=== PATIENT | male | born 1965 | race Caucasian/White ===

== ENCOUNTER 2016-11-25 23:15 | Emergency (ER) | payer OTHER ==
[~2016-11-25] VITALS: Ht 193 cm; Wt 123.9 kg
[~2016-11-25 23:15] MED LIST: ALBU18002 INH; ASPI81TA28 PO; CYCL-259 PO; GLC/500 PO; LISI-789 PO; METO100T7 PO; NTRGSL/4 UT; RIZA10TA18 PO
[2016-11-25 23:21] VITALS: Ht 193 cm; Wt 123.9 kg
--- NOTE | 2016-11-25 23:37 | EMERGENCY ROOM VISIT NOTE ---
History Report prepared by Kelly: Shirley Jimenez Under the Supervision of: Dr. Parker Francis M.D. First contact with patient: 23:27 Chief Complaint: RECTAL BLEEDING Stated Complaint: EXTREME SICKNESS, RECTAL BLEEDING History of Present Illness The patient is a 51 year old white male with a past medical history of diverticulitis and an appendectomy who presents to the ED with a cc of a rectal bleed beginning 5 hours prior to arrival. Positive abdominal pain, chills. Negative testicular pain, fevers. The patient reports that he takes baby aspirin every day. Source of History: patient Onset: 5 hours prior to arrival Position: other (rectum) Quality: other (bleed) Associated Symptoms: + chills, + abdominal pain, No fevers Review of Systems See HPI for pertinent positives and negatives. A total of ten systems were reviewed and were otherwise negative. Past Medical & Surgical Medical Problems: (1) Acute Systolic Heart Failure (2) Asthma, Unspecified (3) Diab Kacey Wo Compl, Type Ii Or Unspec Type, Not Uncntrld (4) Esophageal Reflux (5) Heart disease (6) SVT (supraventricular tachycardia) Family History Cancer Diabetes mellitus Heart disease Hypertension Kidney disease Kidney stones Social History Smoking Status: Never Smoker Alcohol Use: none Marital Status: Housing Status: lives with family Occupation Status: unemployed Current/Historical Medications Scheduled Amoxicillin & Pot Clavulanate (Augmentin 875-125 mg), 1 TAB PO BID Aspirin (Aspirin Ec), 81 MG PO QAM Dicyclomine Hcl (Bentyl), 20 MG PO BID Duloxetine HCl (Cymbalta), 20 MG PO BID Lisinopril (Zestril), 2.5 MG PO QAM Metformin Hcl (Glucophage), 500 MG PO HS Metoprolol Succinate (Toprol Xl), 100 MG PO BID Pregabalin (Lyrica), 75 MG PO BID Rizatriptan Benzoate (Maxalt), 10 MG PO UD Scheduled PRN Albuterol Sulfate (Proair Respiclick), 2-4 PUFFS INH Q6H PRN for SOB/Wheezing Cyclobenzaprine Hcl (Flexeril), 10 MG PO TID PRN for MUSCLE SPASM Nitroglycerin (Nitrostat), 0.4 MG UT PRN PRN for Chest Pain Oxycodone/Acetaminophen 5MG/325MG (Percocet 5MG/325MG), 1 TABLET PO Q6H PRN for Pain Allergies Coded Allergies: Hydromorphone (Verified Allergy, Mild, rash, 01/22/16) Gabapentin (Verified Adverse Reaction, Intermediate, BLOATING, 01/22/16) Physical Exam Vital Signs Date Time Temp Pulse Resp B/P (MAP) Pulse Ox O2 Delivery O2 Flow Rate FiO2 11/26/16 02:42 36.6 89 18 132/83 99 11/26/16 01:24 92 18 132/84 98 Room Air 11/26/16 00:05 79 11/25/16 23:21 36.6 90 20 115/76 98 Room Air Physical Exam GENERAL: Awake, alert, uncomfortable, NAD HENT: Normocephalic, atraumatic. EYES: Normal conjunctiva. Sclera non-icteric. CHEST: No CVA tenderness to palpation. NECK: Supple. No nuchal rigidity. FROM. RESPIRATORY: CTAB, no rhonchi, wheezing, crackles CARDIAC: RRR, no MRG ABDOMEN: Mild diffuse tenderness more pronounced in suprapubic right lower quadrant area. Not peritonitic. : No testicular pain. MSK: No chest wall TTP, no LE edema RECTAL: No hemo, no masses, no fissures, Hemoccult was trace positive NEURO: GCS 15, CN 2-12 intact, moves all 4s on command SKIN: No rash or jaundice noted. Medical Decision & Procedures ER Provider Diagnostic Interpretation: Chest X-Ray: Trachea is midline. Costophrenic angles well demarcated. No effusion noted. No air above diaphragm. Appears to have an AICD in place in left chest. Bony structures appear intact. Radiology results as stated below per my review and [facility]. CT ABDOMEN & PELVIS With Contrast: Intact distal colonic anastomosis. Minimal wall thickening in the descending segment should be correlated for symptoms of colitis. There are diverticula, but these do not appear to be focal point of inflammation. Appendix is not identified. Hepatic steatosis. Laboratory Results 11/25/16 23:50 Red Blood Count 4.78, Mean Corpuscular Volume 85.4, Mean Corpuscular Hemoglobin 31.4, Mean Corpuscular Hemoglobin Concent 36.8, Mean Platelet Volume 9.8, Neutrophils (%) (Auto) 77.3, Lymphocytes (%) (Auto) 13.4, Monocytes (%) (Auto) 5.3, Eosinophils (%) (Auto) 3.5, Basophils (%) (Auto) 0.3, Neutrophils # (Auto) 9.94, Lymphocytes # (Auto) 1.72, Monocytes # (Auto) 0.68, Eosinophils # (Auto) 0.45, Basophils # (Auto) 0.04 11/25/16 23:50 Test 11/25/16 23:50 11/26/16 00:01 White Blood Count 12.85 K/uL (4.8-10.8) Red Blood Count 4.78 M/uL (4.7-6.1) Hemoglobin 15.0 g/dL (14.0-18.0) Hematocrit 40.8 % (42-52) Mean Corpuscular Volume 85.4 fL (80-100) Mean Corpuscular Hemoglobin 31.4 pg (25-34) Mean Corpuscular Hemoglobin Concent 36.8 g/dl (32-36) Platelet Count 262 K/uL (130-400) Mean Platelet Volume 9.8 fL (7.4-10.4) Neutrophils (%) (Auto) 77.3 % Lymphocytes (%) (Auto) 13.4 % Monocytes (%) (Auto) 5.3 % Eosinophils (%) (Auto) 3.5 % Basophils (%) (Auto) 0.3 % Neutrophils # (Auto) 9.94 K/uL (1.4-6.5) Lymphocytes # (Auto) 1.72 K/uL (1.2-3.4) Monocytes # (Auto) 0.68 K/uL (0.11-0.59) Eosinophils # (Auto) 0.45 K/uL (0-0.5) Basophils # (Auto) 0.04 K/uL (0-0.2) RDW Standard Deviation 41.0 fL (36.4-46.3) RDW Coefficient of Variation 13.2 % (11.5-14.5) Immature Granulocyte % (Auto) 0.2 % Immature Granulocyte # (Auto) 0.02 K/uL (0.00-0.02) Prothrombin Time 10.5 SECONDS (9.0-12.0) Prothromb Time International Ratio 1.0 (0.9-1.1) Activated Partial Thromboplast Time 27.8 SECONDS (21.0-31.0) Partial Thromboplastin Ratio 1.1 Anion Gap 9.0 mmol/L (3-11) Est Creatinine Clear Calc Drug Dose 124.5 ml/min Estimated GFR () 98.9 Estimated GFR (Non- 85.3 BUN/Creatinine Ratio 15.1 (10-20) Calcium Level 9.3 mg/dl (8.5-10.1) Total Bilirubin 0.7 mg/dl (0.2-1) Direct Bilirubin 0.1 mg/dl (0-0.2) Aspartate Amino Transf (AST/SGOT) 30 U/L (15-37) Alanine Aminotransferase (ALT/SGPT) 73 U/L (12-78) Alkaline Phosphatase 90 U/L (45-117) Total Protein 8.2 gm/dl (6.4-8.2) Albumin 4.1 gm/dl (3.4-5.0) Lipase 183 U/L (73-393) Urine Color YELLOW Urine Appearance CLEAR (CLEAR) Urine pH 5.0 (4.5-7.5) Urine Specific [place] 1.017 (1.000-1.030) Urine Protein NEG (NEG) Urine Glucose (UA) NEG (NEG) Urine Ketones NEG (NEG) Urine Occult Blood NEG (NEG) Urine Nitrite NEG (NEG) Urine Bilirubin NEG (NEG) Urine Urobilinogen NEG (NEG) Urine Leukocyte Esterase TRACE (NEG) Urine WBC (Auto) 1-5 /hpf (0-5) Urine RBC (Auto) 0-4 /hpf (0-4) Urine Hyaline Casts (Auto) 0 /lpf (0-5) Urine Epithelial Cells (Auto) 0-5 /lpf (0-5) Urine Bacteria (Auto) NEG (NEG) Laboratory results reviewed by me Medications Administered Medications (Trade) Dose Ordered Sig/Babs Route Start Time Stop Time Status Last Admin Dose Admin Sodium Chloride 1,000 ml @ 999 mls/hr Q1H1M STAT IV 11/25/16 23:39 11/26/16 00:39 DC 11/25/16 23:56 999 MLS/HR Ondansetron HCl (Zofran Inj) 4 mg NOW STAT IV 11/25/16 23:39 11/25/16 23:41 DC 11/25/16 23:56 4 MG Cyclobenzaprine HCl (Flexeril Tab) 10 mg ONE STAT PO 11/26/16 01:45 11/26/16 01:48 DC 11/26/16 02:22 10 MG Amoxicillin/ Clavulanate Potassium (Augmentin Tab) 875 mg NOW ONCE PO 11/26/16 02:30 11/26/16 02:31 DC 11/26/16 02:36 875 MG ECG Indication: other (rectal bleeding ) Rate (beats per minute): 78 Rhythm: normal sinus Findings: no ectopy, other (normal axis, normal intervals, no STS changes or T- wave inversions) ED Course 2330: The patient was evaluated in room B12B. A complete history and physical exam was performed. 0200: I updated the patient on his results. 0: I reevaluated the patient. Discussed results and discharge instructions: He verbalized understanding and agreement. The patient is ready for discharge. 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 Differential diagnosis: Etiologies such as appendicitis, diverticulitis, PUD, biliary pathology, UTI, pancreatitis, obstruction, mesenteric ischemia, aortic pathology, infections, inflammatory bowel disease, renal colic, as well as others were entertained. Patient was seen and evaluated the bedside. Patient states that he has some abdominal pain that began suddenly around 6 PM is fairly well localized to lower abdomen. Patient stated as sharp dull and achy. Patient states that most throughout the abdomen. Patient denies any recent travel, fevers, trauma. Patient does take a baby aspirin. Patient did have blood work that was completed as well as an EKG, chest x-ray and CT of the abdomen pelvis. Patient did have a rectal exam was completed that showed trace blood. WBC 12K, hgb WNL, platelet count WNL. Coags WNL. Given patient w/ stable vitals and normal blood counts w/ colitis, given PO Augmentin given medication interactions w/ cipro/ flagyl. patient received first dose here then was given f/u w/ GI as outpatient as he was deemed suitable at this time. Given f/u, d/c, and return precautions and d/c'ed to home. Medication Reconcilliation Current Medication List: was personally reviewed by me Blood Pressure Screening Patient's blood pressure: Normal blood pressure Impression Primary Impression: Abdominal pain Additional Impressions: Rectal bleed Colitis Scribe Attestation The scribe's documentation has been prepared under my direction and personally reviewed by me in its entirety. I confirm that the note above accurately reflects all work, treatment, procedures, and medical decision making performed by me. Departure Information Dispostion Home / Self-Care Prescriptions Dicyclomine Hcl (BENTYL) 20 Mg Tab 20 MG PO BID for 7 Days, #14 TAB Prov: Parker Francis M.D. 11/26/16 Amoxicillin & Pot Clavulanate (Augmentin 875-125 mg) 1 Tab Tab 1 TAB PO BID for 7 Days, #14 TAB Prov: Parker Francis M.D. 11/26/16 Referrals French Weir D.O. (PCP) Luis Clay D.O. Forms HOME CARE DOCUMENTATION FORM, IMPORTANT VISIT INFORMATION, WORK / SCHOOL INSTRUCTIONS Patient Instructions Abdominal Pain, My [facility] Additional Instructions Please return to the emergency department if you have worsening or recurrent symptoms not amenable to at-home treatment. Please call for a follow-up appointment with her primary care physician. Please take your medications as prescribed. If you have other concerns and/or complaints please feel free to also call your primary care physician's office or return the ED for further evaluation, management, and treatment. You may take 650 mg tylenol as needed for pain every 6 hours. You may also try bentyl. Please take your antibiotics as prescribed with food. Consider yogurt or probiotics to help promote good gut quintin. Consider calling the referred physician who is a seed buyer. You may need to discuss with your PCP before getting a referral. You have been examined and treated today on an emergency basis only. This is not a substitute for, or an effort to provide, complete comprehensive medical care. It is impossible to recognize and treat all injuries or illnesses in a single emergency department visit. It is therefore important that you follow up closely with [facility]. Call as soon as possible for an appointment. Thank you for your time and consideration. I look forward to speaking with you again soon. Please don't hesitate to call us if you have any questions. Problem Qualifiers Primary Impression: Abdominal pain Abdominal location: lower abdomen, unspecified Qualified Codes: R10.30 - Lower abdominal pain, unspecified
[2016-11-25] MEDS ORDERED: SODIUM CHLORIDE 0.9% 1000ML 1,000 ML IV STA (23:39)
[2016-11-25] MEDS ORDERED: ONDANSETRON INJ 2 MG/ML 2 ML VIAL IV STA (23:39)
[2016-11-25] MEDS ORDERED: OPTIRAY 320 IV PRN (23:45)
[2016-11-26 00:11] LABS: BASO % 0.3 %; BASO ABS # 0.04 K/uL (0-0.2); COMPLETE YES; EOS % 3.5 %; HEMATOCRIT 40.8 % (42-52); IG% 0.2 %; LYMPH % 13.4 %; LYMPH ABS # 1.72 K/uL (1.2-3.4); MEAN CELL VOLUME 85.4 fL (80-100); MEAN CORPUSCULAR HEMOGLOBIN 31.4 pg (25-34); MEAN CORPUSCULAR HGB CONC 36.8 g/dl (32-36); MEAN PLATELET VOLUME 9.8 fL (7.4-10.4); MONO % 5.3 %; NEUT % 77.3 %; PLATELET COUNT 262 K/uL (130-400); RED BLOOD COUNT 4.78 M/uL (4.7-6.1); WHITE BLOOD COUNT 12.85 K/uL (4.8-10.8)
[2016-11-26 00:12] LABS: URINE APPEARANCE CLEAR (CLEAR); URINE BILIRUBIN NEG (NEG); URINE COLOR YELLOW; URINE EPITHELIAL CELL AUTO 0-5 /lpf (0-5); URINE NITRITE NEG (NEG); URINE SPECIFIC GRAVITY 1.017 (1.000-1.030); UROBILINOGEN NEG (NEG); ZZUR CULT IF INDIC CLEAN CATCH NO
[2016-11-26 00:14] LABS: MANUAL MICROSCOPIC REQUIRED? NO; REVIEW REQ? NO
[2016-11-26 00:16] LABS: PARTIAL THROMBOPLASTIN RATIO 1.1; PROTHROMBIN TIME (PATIENT) 10.5 SECONDS (9.0-12.0)
[2016-11-26] MEDS ORDERED: OXYC-57 PO (00:27)
[2016-11-26] MEDS ORDERED: PREG1CAP28 PO (00:28)
[2016-11-26] MEDS ORDERED: DULO-24 PO (00:30)
[2016-11-26 00:32] LABS: BUN/CREATININE RATIO 15.1 (10-20); CALCIUM 9.3 mg/dl (8.5-10.1); CREATININE 1.02 mg/dl (0.60-1.40); POTASSIUM 3.7 mmol/L (3.5-5.1)
[2016-11-26] MEDS ORDERED: CYCLOBENZAPRINE HCL 5 MG TAB PO STA (01:45)
[2016-11-26] MEDS ORDERED: DICY20TA35 PO (02:25)
[2016-11-26] MEDS ORDERED: AMOX875T PO (02:25)
[2016-11-26] MEDS ORDERED: AMOXICILLIN/CLAVULANATE TAB 875 MG TAB PO ONE (02:30)
[2016-11-26 02:42] VITALS: BP 132/83; PULSE 89; TEMP 36.6; O2SAT 99
--- NOTE | 2016-11-26 07:13 | DIAGNOSTIC IMAGING REPORT ---
ABD/PELVIS IV CONTRAST ONLY HISTORY: 51 years-old Male pain in suprapubic/RLQ, severe, stabbing, GI bleed acute suprapubic and right lower quadrant abdominal pain with gastrointestinal hemorrhage COMPARISON: Chest CT 03/01/2014 TECHNIQUE: Multiple axial CT images of the abdomen and pelvis were obtained following the intravenous administration of 93 mL Optiray 320. A dose lowering technique was used consistent with the principals of ALARA. Images obtained were in the delayed excretory phase secondary to patient vomiting soon after injection. FINDINGS: The lung bases are generally clear. No pneumoperitoneum identified. Imaged inferior cardiac chambers are normal in size without large pericardial effusion. Pacer leads are seen overlying the right heart. Diffuse fatty infiltration of the liver. The spleen, pancreas and adrenal glands are within normal limits. Gallbladder is also unremarkable. Lobulation of the bilateral renal parenchyma suggests lobulations. Indeterminate low attenuating lesions measuring up to 7 mm within the posterior aspect inferior pole left kidney are indeterminate, however suggest cysts. No renal collecting system dilation or focal filling defects identified. No hydronephrosis or definite renal calculi. Urinary bladder is partially collapsed. Prostate is upper limits of normal in size. The abdominal aorta is normal in course and caliber. No bulky adenopathy. There is no bowel obstruction. Nondistention of the rectosigmoid. Anastomotic sutures are present at the distal aspect of the descending colon which appear intact. There is nondistention with mild wall thickening extending from the splenic flexure through the descending and sigmoid colon. Scattered noninflamed colonic diverticula. Prior appendectomy. Soft tissues are unremarkable. Facet arthrosis of the lower lumbar spine. Bones appear intact. IMPRESSION: 1. Mild wall thickening of the colon extending from the splenic flexure through the sigmoid colon may be secondary to nondistention, however mild colitis could have a similar appearance. Correlate with clinical exam and patient presentation. 2. Prior partial resection of the distal descending colon with anastomosis intact. Prior appendectomy. 3. Fatty infiltration of the liver. 4. Colonic diverticulosis without diverticulitis. The above report was generated using voice recognition software. It may contain grammatical, syntax or spelling errors. Electronically signed by: Nic Angel M.D. 11/26/2016 7:11 AM Dictated Date/Time: 11/26/2016 7:05 AM
--- NOTE | 2016-11-26 07:16 | DIAGNOSTIC IMAGING REPORT ---
SINGLE VIEW CHEST CLINICAL HISTORY: Generalized abdominal pain. FINDINGS: An AP, portable, upright chest radiograph is compared to study dated 10/14/2013 and correlated with chest CT dated 03/01/2014. The examination is degraded by portable technique and patient rotation. A cardiac AICD is unchanged in position. The heart is top normal for projection. The pulmonary vasculature is noncongested. Chronic interstitial thickening is similar to previous.. . No airspace consolidation, large pleural effusion, or pneumothorax is seen. The bony thorax is grossly intact. IMPRESSION: 1. AICD. There is no radiographic evidence of congestive failure. 2. No airspace consolidation or pleural effusion is identified. Electronically signed by: Rogerio Sheridan M.D. 11/26/2016 7:15 AM Dictated Date/Time: 11/26/2016 7:13 AM
== END 2016-11-26 02:43 | disposition home or self-care (01) ==
LOC: C.EDB 23:18
DX: R10.30 Lower abdominal pain, unspecified (principal); K62.5 Hemorrhage of anus and rectum; K52.9 Noninfective gastroenteritis and colitis, unspecified; J45.909 Unspecified asthma, uncomplicated; E11.9 Type 2 diabetes mellitus without complications; K21.9 Gastro-esophageal reflux disease without esophagitis; I51.9 Heart disease, unspecified; I47.1 Supraventricular tachycardia; Z83.3 Family history of diabetes mellitus; Z82.49 Family history of ischemic heart disease and other diseases of the circulatory system; Z79.4 Long term (current) use of insulin

== ENCOUNTER 2017-01-03 10:47 | Day surgery (SDC) | payer OTHER ==
[~2017-01-03] VITALS: Ht 190.5 cm; Wt 77.5 kg
[~2017-01-03 10:47] MED LIST changes: +ATROPINE SULFATE 0.1 MG/ML 5ML SYR IV PRN; +DULO-24 PO; +EpHEDrine SULFATE INJ 50 MG/ML AMP IV PRN; +FENTANYL CITRATE INJ 50 MCG/1 ML 2 ML VIAL IV PRN; +ONDANSETRON INJ 2 MG/ML 2 ML VIAL IV PRN; +OXYC-57 PO; +PREG1CAP28 PO
[2017-01-03 11:13] VITALS: Ht 190.5 cm; Wt 77.5 kg
[2017-01-03] MEDS ORDERED: LIDOCAINE HCL 1% 20 ML VIAL ONE (11:43)
[2017-01-03] MEDS ORDERED: FENTANYL CITRATE INJ 50 MCG/1 ML 2 ML VIAL ONE ×2 (12:11→13:04)
[2017-01-03] MEDS ORDERED: MIDAZOLAM HCL 1 MG/ML 2ML VIAL ONE (12:11)
--- NOTE | 2017-01-03 12:17 | History & Physical Bridge Note ---
H&P Re-Evaluation Bridge Note: I have examined the patient, reviewed the History & Physical and in the interval since the performance of the History & Physical I have noted the following changes of clinical significance: No changes noted
[2017-01-03] MEDS ORDERED: KETOROLAC TROMETHAMINE 30 MG/ML VIAL ONE (12:54)
[2017-01-03] MEDS ORDERED: DEXAMETHASONE SOD INJ 4 MG/ML VIAL ONE (12:54)
[2017-01-03] MEDS ORDERED: PROPOFOL IV EMULSION 10 MG/ML 20 ML VIAL IV ONE (13:14)
[2017-01-03] MEDS ORDERED: ONDANSETRON INJ 2 MG/ML 2 ML VIAL ONE (13:14)
--- NOTE | 2017-01-03 13:32 | [facility] Post Operative Brief Note ---
Immediate Operative Summary Operative Date Jan 03, 2017. Pre-Operative Diagnosis Rule out Myocytosis Post-Operative Diagnosis Same as preop Procedure(s) Performed Right Thigh Muscle Biopsy Surgeon Dr. Edmondson Machine Heel Builder Surgeon(s) None Estimated Blood Loss 5 ml Findings See dictation Specimens Fresh A. Right quadricept muscle left room at 1249. Drains None Anesthesia General Complication(s) None Disposition Recovery Room / PACU
--- NOTE | 2017-01-03 13:42 | Discharge Instructions ---
Discharge Instructions Date of Service Jan 03, 2017. Admission Reason for Admission: Muscle Weakness Discharge Discharge Diagnosis / Problem: Same Discharge Goals Goal(s): Diagnostic testing Activity Recommendations Activity Limitations: per Instructions/Follow-up section Shower/Bathe: tomorrow (Shower only) . Instructions / Follow-Up Instructions / Follow-Up ACTIVITY RECOMMENDATIONS: * Walk as much as possible. * No heavy lifting (>10 lbs.) for 4-5 days weeks. SPECIAL CARE INSTRUCTIONS: * Ice to surgical site on and off until bedtime tonight. * May shower in 24 hours. Let water run over area and pat dry. * Leave steri strips on for one week. * Call the surgeon's office with any questions or concerns - (ex. temperature higher than 101 degrees F, excessive bleeding or pain). MEDICATIONS: Resume previous medications unless instructed otherwise by your surgeon. * Ibuprofen 600 mg every 6 hours with food * Percocet 1 every 4 hours, as needed for pain FOLLOW UP VISIT: If not already scheduled, please call the office to schedule a two week follow- up appointment. Office number Current Hospital Diet Patient's current hospital diet: Discharge Diet Recommended Diet: Regular Diet Procedures Procedures Performed: Right Thigh Muscle Biopsy Pending Studies Studies pending at discharge: yes List of pending studies: Pathology Medical Emergencies . Who to Call and When: Medical Emergencies: If at any time you feel your situation is an emergency, please call 911 immediately. . Non-Emergent Contact Non-Emergency issues call your: Primary Care Provider, Surgeon Call Non-Emergent contact if: wound has increased redness, wound has increased pain . "Provider Documentation" section prepared by Arnie Edmondson. . VTE Core Measure Inpt VTE Proph given/why not?: Treatment not indicated
[2017-01-03] MEDS ORDERED: ATROPINE SULFATE 0.1 MG/ML 5ML SYR IV PRN (13:45)
[2017-01-03] MEDS ORDERED: EpHEDrine SULFATE INJ 50 MG/ML AMP IV PRN (13:45)
[2017-01-03] MEDS ORDERED: ONDANSETRON INJ 2 MG/ML 2 ML VIAL IV PRN (13:45)
[2017-01-03] MEDS ORDERED: PROMETHAZINE HCL INJ 6.25 MG in SODIUM CHLORIDE 0.9% 50ML 50 ML IV PRN (13:45)
[2017-01-03] MEDS: FENTANYL CITRATE INJ 50 MCG/1 ML 2 ML VIAL IV PRN ×2 (14:03→14:10)
--- NOTE | 2017-01-03 14:08 | OPERATIVE REPORT ---
DATE OF OPERATION: 01/03/2017 PREOPERATIVE DIAGNOSES: Muscle pain and weakness. POSTOPERATIVE DIAGNOSES: Same. PROCEDURE: Biopsy of right quadriceps muscle. SURGEON: Dr. Arnie Edmondson. FINDINGS: The muscle appeared normal. There was no edema. The remainder of the tissues appeared normal as well. TECHNIQUE: The patient was given a general anesthetic and the area was prepped and draped in the usual sterile fashion. A longitudinal incision was made in the anterior aspect of the right side and carried down through the subcutaneous tissue, which was opened along the length of the incision. The fascia was identified and opened along the length of the incision. The superficial enveloping tissue over the muscle was opened and the muscle was exposed. A 3 x 1 cm section of muscle was then isolated away from the rest of the muscle, clamped proximally and distally and the intervening portion removed and sent for pathology. Each of those ends was ligated with a 2-0 Vicryl tie. The fascia was closed over it using a running 2-0 Vicryl. The deep subcutaneous tissue was closed with running 2-0 Vicryl. The superficial subcutaneous tissue was closed with running 3-0 Vicryl and skin was closed with 4-0 Monocryl in a running subcuticular fashion. The skin was anesthetized with 0.5% Marcaine. The skin was cleansed, dried, and benzoin placed. Steri-Strips applied. The estimated blood loss was 5 mL. Sponge, needle and instrument counts were correct prior to closure. The patient tolerated the surgical procedure without complication and was transferred to recovery. I attest to the content of the Intraoperative Record and any orders documented therein. Any exception s are noted below.
--- NOTE | 2017-01-03 14:16 | Anesthesiology Progress Note ---
Anesthesia Post Op Note Date & Time Jan 03, 2017 at 14:16 Vital Signs Pain Intensity: 6 Vital Signs Past 12 Hours Date Time Temp Pulse Resp B/P (MAP) Pulse Ox O2 Delivery O2 Flow Rate FiO2 01/03/17 14:08 84 16 01/03/17 14:08 85 16 95 01/03/17 14:06 115/78 01/03/17 14:03 81 13 01/03/17 14:03 80 13 92 01/03/17 14:02 80 13 01/03/17 14:02 81 13 92 01/03/17 14:01 136/70 01/03/17 13:57 82 16 93 01/03/17 13:57 82 16 01/03/17 13:56 123/72 01/03/17 13:52 85 23 01/03/17 13:52 84 23 94 01/03/17 13:51 83 13 126/80 96 01/03/17 13:51 84 13 01/03/17 13:46 85 21 01/03/17 13:46 85 21 125/75 93 01/03/17 13:43 126/77 01/03/17 13:41 85 15 01/03/17 13:41 85 15 94 01/03/17 13:36 94 25 123/81 94 01/03/17 13:36 88 25 01/03/17 13:32 134/74 01/03/17 13:31 36.5 90 16 134/74 94 Nasal Cannula 2 Notes Mental Status: alert / awake / arousable, participated in evaluation Pt Amnestic to Procedure: Yes Nausea / Vomiting: adequately controlled Pain: adequately controlled Airway Patency, RR, SpO2: stable & adequate BP & HR: stable & adequate Hydration State: stable & adequate Anesthetic Complications: no major complications apparent
[2017-01-03 14:40] VITALS: BP 119/68; PULSE 78; TEMP 36.7; O2SAT 96
[2017-01-03 15:10] VITALS: BP 101/64; PULSE 80; TEMP 36.6; O2SAT 95
== END 2017-01-03 15:23 | disposition home or self-care (01) ==
LOC: C.ACU 10:47
PROVIDERS: ATTEND Surgery
DX: M62.81 Muscle weakness (generalized) (principal); M79.1 Myalgia

== ENCOUNTER → 2017-01-12 | Day surgery (SDC) | payer OTHER ==
[2017-01-06 08:14] VITALS: BMI 21.0
[~2017-01-12] VITALS: Ht 190.5 cm; Wt 77.3 kg
[~2017-01-12] MED LIST changes: -ATROPINE SULFATE 0.1 MG/ML 5ML SYR IV PRN; -CYCL-259 PO; +CYCL10TA6 PO; -EpHEDrine SULFATE INJ 50 MG/ML AMP IV PRN; -FENTANYL CITRATE INJ 50 MCG/1 ML 2 ML VIAL IV PRN; +LIDOCAINE HCL 2% 2 ML VIAL (20MG/ML) ONE; -ONDANSETRON INJ 2 MG/ML 2 ML VIAL IV PRN; +PROPOFOL IV EMULSION 10 MG/ML 20 ML VIAL IV ONE
[2017-01-12 08:02] VITALS: Ht 190.5 cm; Wt 77.3 kg
--- NOTE | 2017-01-12 08:31 | Endo History and Physical ---
History & Physical Date of Service: Jan 12, 2017. Chief Complaint: Hematochezia Referring Physician: DR. BANGURA History of Present Illness Patient with a history of recurrent hematochezia for colonoscopy today. Past Medical History Pacemaker, Asthma, COPD Past Surgical History Hx Cardiac Surgery: Yes (CARDIAC ABLATION) Hx Internal Defibrillator: Yes (06-13-2012) Hx Pacemaker: Yes (06-13-2012) Hx Abdominal Surgery: Yes (COLON RESECTION, APPY) Hx of Implantable Prosthesis: No Hx Post-Op Nausea and Vomiting: No Hx Cancer Surgery: No Hx Thoracic Surgery: No Hx Orthopedic: Yes (RT FOOT BONE RESECTION, RT KNEE ACL) Hx Urinary Tract Surgery: No Family History IBD Social History Smoking Status: Never Smoker Hx Substance Use: No Hx Alcohol Use: No Allergies Coded Allergies: Hydromorphone (Verified Allergy, Mild, rash, 01/12/17) Gabapentin (Verified Adverse Reaction, Intermediate, BLOATING, body aches , 01/12/17) Current Medications Reported Home Medications Medications Dose Route/Sig Max Daily Dose Days Date Category Dose Instructions Flexeril (Cyclobenzaprine Hcl) 10 Mg Tab 10 Mg PO TID PRN 01/06/17 Reported Cymbalta (Duloxetine HCl) 20 Mg Cap 20 Mg PO BID 11/26/16 Reported Lyrica (Pregabalin) 75 Mg Cap 75 Mg PO BID 11/26/16 Reported Percocet 5MG/325MG (Oxycodone/Acetaminophen) Tab 1 Tablet PO Q6H PRN 11/26/16 Reported PAIN Proair Respiclick (Albuterol Sulfate) 108 Mcg/Act Aer 2-4 Puffs INH Q6H PRN 01/22/16 Reported Glucophage (Metformin Hcl) 500 Mg Tab 500 Mg PO HS 01/22/16 Reported Toprol Xl (Metoprolol Succinate) 100 Mg Tab 100 Mg PO BID 01/22/16 Reported Nitrostat (Nitroglycerin) 0.4 Mg Tab 0.4 Mg UT PRN PRN 08/27/15 Reported Zestril (Lisinopril) 2.5 Mg Tab 2.5 Mg PO QAM 08/27/15 Reported Aspirin Ec (Aspirin) 81 Mg Tab 81 Mg PO QAM 08/27/15 Reported Maxalt (Rizatriptan Benzoate) 10 Mg Tab 10 Mg PO UD 9/27/14 Reported PRN FOR MIGRAINE MATHEW Vital Signs Weight (Kilograms): 77.27 Height (Feet): 6 Height (Inches): 3 Date Time Temp Pulse Resp B/P (MAP) Pulse Ox O2 Delivery O2 Flow Rate FiO2 01/12/17 08:12 36.5 86 20 104/73 (83) 94 Room Air Physical Exam General Appearance: no apparent distress Respiratory/Chest: Auscultation: breath sounds normal Cardiovascular: Heart Auscultation: RRR Abdomen: Inspection & Palpation: soft Assessment and Plan Patient for colonoscopy today to evaluate a history. We have discussed the risks to include bleeding, infection, perforation, pain and missed polyps.
--- NOTE | 2017-01-12 09:04 | GI REPORT ---
Procedure Date: 01/12/2017 8:30 AM Procedure: Colonoscopy Indications: Screening for colorectal malignant neoplasm Medicines: Monitored Anesthesia Care Complications: No immediate complications. Estimated blood loss: Minimal. Estimated Blood Loss: Estimated blood loss was minimal. Procedure: Pre-Anesthesia Assessment: - Prior to the procedure, a History and Physical was performed, and patient medications, allergies and sensitivities were reviewed. The patient's tolerance of previous anesthesia was reviewed. - The risks and benefits of the procedure and the sedation options and risks were discussed with the patient. All questions were answered and informed consent was obtained. - Patient identification and proposed procedure were verified prior to the procedure by the physician, the nurse and the lumber grader. The procedure was verified in the procedure room. - Pre-procedure physical examination revealed no contraindications to sedation. - ASA Grade Assessment: III - A patient with severe systemic disease. - After reviewing the risks and benefits, the patient was deemed in satisfactory condition to undergo the procedure. - The anesthesia plan was to use monitored anesthesia care (MAC). - Immediately prior to administration of medications, the patient was re-assessed for adequacy to receive sedatives. - The heart rate, respiratory rate, oxygen saturations, blood pressure, adequacy of pulmonary ventilation, and response to care were monitored throughout the procedure. - The physical status of the patient was re-assessed after the procedure. After I obtained informed consent, the scope was passed under direct vision. Throughout the procedure, the patient's blood pressure, pulse, and oxygen saturations were monitored continuously. The Scope was introduced through the anus and advanced to the terminal ileum. The colonoscopy was performed without difficulty. The patient tolerated the procedure well. The quality of the bowel preparation was good. Findings: The perianal and digital rectal examinations were normal. Pertinent negatives include normal sphincter tone. The terminal ileum appeared normal. There was evidence of a prior end-to-side colo-colonic anastomosis in the recto-sigmoid colon. This was patent and was characterized by healthy appearing mucosa. The anastomosis was traversed. Four sessile polyps were found in the rectum. The polyps were 3 to 5 mm in size. These polyps were removed with a cold snare. Resection and retrieval were complete. Estimated blood loss was minimal. Internal hemorrhoids were found during retroflexion. The hemorrhoids were mild. The exam was otherwise without abnormality. Impression: - The examined portion of the ileum was normal. - Patent end-to-side colo-colonic anastomosis, characterized by healthy appearing mucosa. - Four 3 to 5 mm polyps in the rectum, removed with a cold snare. Resected and retrieved. - Internal hemorrhoids. - The examination was otherwise normal. Recommendation: - Discharge patient to home (ambulatory). - Advance diet as tolerated today. - Await pathology results. - Repeat colonoscopy in 5 years for surveillance based on pathology results. - Return to GI office PRN. Rivera Reynaga D.O. Rivera Reynaga, 01/12/2017 9:03:20 AM This report has been signed electronically. Note Initiated On: 01/12/2017 8:30 AM I attest to the content of the Intraoperative Record and orders documented therein, exceptions below
--- NOTE | 2017-01-12 09:04 | Discharge Instructions ---
Endoscopy Patient Instructions Date / Procedure(s) Performed Jan 12, 2017. Colonoscopy Allergy Information Coded Allergies: Hydromorphone (Verified Allergy, Mild, rash, 01/12/17) Gabapentin (Verified Adverse Reaction, Intermediate, BLOATING, body aches , 01/12/17) Discharge Date / Findings Jan 12, 2017. Internal hemorrhoids 4 small colonic polyps Medication Instructions Stopped Medication(s): glucophage Reported Home Medications Medications Dose Route/Sig Max Daily Dose Days Date Category Dose Instructions Flexeril (Cyclobenzaprine Hcl) 10 Mg Tab 10 Mg PO TID PRN 01/06/17 Reported Cymbalta (Duloxetine HCl) 20 Mg Cap 20 Mg PO BID 11/26/16 Reported Lyrica (Pregabalin) 75 Mg Cap 75 Mg PO BID 11/26/16 Reported Percocet 5MG/325MG (Oxycodone/Acetaminophen) Tab 1 Tablet PO Q6H PRN 11/26/16 Reported PAIN Proair Respiclick (Albuterol Sulfate) 108 Mcg/Act Aer 2-4 Puffs INH Q6H PRN 01/22/16 Reported Glucophage (Metformin Hcl) 500 Mg Tab 500 Mg PO HS 01/22/16 Reported Toprol Xl (Metoprolol Succinate) 100 Mg Tab 100 Mg PO BID 01/22/16 Reported Nitrostat (Nitroglycerin) 0.4 Mg Tab 0.4 Mg UT PRN PRN 08/27/15 Reported Zestril (Lisinopril) 2.5 Mg Tab 2.5 Mg PO QAM 08/27/15 Reported Aspirin Ec (Aspirin) 81 Mg Tab 81 Mg PO QAM 08/27/15 Reported Maxalt (Rizatriptan Benzoate) 10 Mg Tab 10 Mg PO UD 11/03/13 Reported PRN FOR MIGRAINE MATHEW Provider Instructions Activity Restrictions - No exercising or heavy lifting for 24 hours. - Do not drink alcohol the day of the procedure. - Do not drive a car or operate machinery until the day after the procedure. - Do not make any important decisions or sign important papers in 24 hours after the procedure. Following Day: - Return to full activity which may include returning to work/school. Diet Start your diet with liquids and light foods (jello, soup, juice, toast). Then eat your usual diet if not nauseated. Treatment For Common After Affects For mild abdominal pain, bloating, or excessive gas: - Rest - Eat lightly - Lie on right side Follow-Up Information Follow-up with DR. BANGURA as scheduled Consider use of a fiber supplement 1 time daily Repeat colonoscopy in 5 years Follow-up with gastric neurology as needed Anesthesia Information What You Should Know You have had a procedure that required some medicine to reduce anxiety and discomfort. This treatment is called moderate sedation. After receiving the treatment, you may be sleepy, but you will be able to breathe on your own. The effects of the treatment may last for several hours. Follow these instructions along with Activity/Diet recommendations noted above: * Do NOT do anything where dizziness or clumsiness would be dangerous. * Rest quietly at home today, then you can be up and about tomorrow. * Have a responsible person stay with you the rest of today. * You may have had an I.V. today. If so, you may take the dressing off later today. Recommendations Call your doctor if: * Trouble breathing * Continuous vomiting for more than 24 hours * Temperature above 101 degrees * Severe abdominal pain or bloating * Pain not relieved by pain medicine ordered * There is increased drainage or redness from any incision * A large amount of rectal bleeding greater than 2-3 tablespoons. (If you had a polyp/s removed or have hemorrhoids, a small amount of blood - from the rectum is to be expected.) * You have any unanswered questions or concerns. IN THE EVENT OF A SERIOUS EMERGENCY, GO TO THE NEAREST EMERGENCY ROOM Your discharge instructions were prepared by provider Rivera Reynaga. Patient Instructions Signature Page Boby Little Patient (or Guardian) Signature/Date: I have read and understand the instructions given to me by my caregivers. Caregiver/RN/Doctor Signature/Date: The above-named patient and/or guardian has received patient instructions on this date. + Original Patient Signature Page (only) stays with chart. Please make copy for patient.
--- NOTE | 2017-01-12 09:26 | Anesthesiology Progress Note ---
Anesthesia Post Op Note Date & Time Jan 12, 2017 at 09:26 Vital Signs Pain Intensity: 3 Vital Signs Past 12 Hours Date Time Temp Pulse Resp B/P (MAP) Pulse Ox O2 Delivery O2 Flow Rate FiO2 01/12/17 08:12 36.5 86 20 104/73 (83) 94 Room Air Notes Mental Status: alert / awake / arousable, participated in evaluation Pt Amnestic to Procedure: Yes Nausea / Vomiting: adequately controlled Pain: adequately controlled Airway Patency, RR, SpO2: stable & adequate BP & HR: stable & adequate Hydration State: stable & adequate Anesthetic Complications: no major complications apparent
[2017-01-12 09:32] VITALS: BP 127/76; PULSE 81; O2SAT 96
== END | disposition home or self-care (01) ==
LOC: C.GI 07:39
PROVIDERS: ATTEND Internal Medicine Gastroenterology
DX: Z12.11 Encounter for screening for malignant neoplasm of colon (principal); K62.1 Rectal polyp; K64.8 Other hemorrhoids; J45.909 Unspecified asthma, uncomplicated; E11.9 Type 2 diabetes mellitus without complications; Z95.0 Presence of cardiac pacemaker; Z90.89 Acquired absence of other organs; Z98.890 Other specified postprocedural states; Z79.82 Long term (current) use of aspirin